=== PATIENT | female | born 1980 | race Caucasian/White ===

== ENCOUNTER 2017-11-04 04:34 | Emergency (ER) | payer BC, OTHER ==
[2017-11-04] MEDS ORDERED: Lidocaine 1% 50 ML MDV INJECT STA (04:48)
--- NOTE | 2017-11-04 05:32 | EDM.PDOC ---
ED HPI GENERAL MEDICAL PROBLEM - General Chief Complaint: Laceration Stated Complaint: laceration to face Time Seen by Provider: 11/04/17 04:45 Source of Information: Reports: Patient, Family History Limitations: Reports: No Limitations - History of Present Illness INITIAL COMMENTS - FREE TEXT/NARRATIVE: This is a 37-year-old female. She comes to the ER with a large laceration following her left eyebrow and is 5 cm in length. The laceration goes down to the bone and is gapping. The patient states she is not certain what happened but she has been drinking alcohol this evening. One of her friends states that she fell down some steps but there was no loss of consciousness. She complains of soreness in her hands but denies any other injuries. She denies any neck pain back pain chest pain abdominal pain or lower extremity pain. She states she is up-to-date with her tetanus. Left Eye Pain Score (Numeric/FACES): 4 - Related Data Allergies Allergy/AdvReac Type Severity Reaction Status Date / Time No Known Allergies Allergy Verified 11/04/17 04:44 Home Meds: Home Meds . 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 SPECIALIST History: Reports: None Musculoskeletal History: Reports: None Psychiatric History: Reports: None Endocrine/Metabolic History: Reports: None Dermatologic History: Reports: None - Past Surgical History Female Surgical History: Reports: None Musculoskeletal Surgical History: Reports: None Social & Family History - Family History Family Medical History: Noncontributory - Tobacco Use Smoking Status *Q: Unknown Ever Smoked Second Hand Smoke Exposure: No - Alcohol Use Days Per Week of Alcohol Use: 0 - Recreational Drug Use Recreational Drug Use: No ED ROS GENERAL - Review of Systems Review Of Systems: See Below Constitutional: Denies: Fever, Chills HEENT: Reports: Other (As per history of present illness) Respiratory: Reports: No Symptoms Cardiovascular: Reports: No Symptoms Endocrine: Reports: No Symptoms GI/Abdominal: Reports: No Symptoms : Reports: No Symptoms Musculoskeletal: Reports: Other (As per history of present illness) Skin: Reports: Other (As per history of present illness) Neurological: Reports: No Symptoms, Other Psychiatric: Reports: No Symptoms Hematologic/Lymphatic: Reports: No Symptoms ED EXAM, SKIN/RASH Exam: See Below Exam Limited By: No Limitations General Appearance: Alert, WD/WN, Mild Distress Eye Exam: Bilateral Eye: EOMI, Normal Inspection Ears: Normal External Exam Nose: Normal Inspection Throat/Mouth: Normal Inspection, Normal Lips, Normal Voice Head: Other (She is noted to have a 5 cm laceration following the left eyebrow down to the skull but not through the galea it is gapping open) Neck: Supple, Other (She denies any neck tenderness) Respiratory/Chest: No Respiratory Distress, Chest Non-Tender Back Exam: Full Range of Motion, Other (She denies any thoracic or lumbar tenderness) Extremities: Normal Inspection, Normal Range of Motion, Other (Examination of both her wrist and her hands do not reveal any bruising or swelling she has full range of motion of her wrist so they're sore for range of motion of her hands and she is able to make a fist and extend completely and sore but not painful, there is no bone tenderness on palpation of her wrist or her hands) Neurological: Alert, Oriented, No Motor/Sensory Deficits Psychiatric: Anxious, Tearful Skin: Warm, Dry ED SKIN PROCEDURES - Laceration/Wound Repair Left Forehead Lac/Wound length In cm: 5 Appearance: Subcutaneous, Linear, Clean Distal NVT: Neuro & Vascular Intact Anesthetic Type: Local Local Anesthesia - Lidocaine (Xylocaine): 1% Plain Local Anesthetic Volume: Other (8 cc) Skin Prep: Providone-Iodine (Betadine), Saline, Sterile Drape Exploration/Debridement/Repair: Wound Explored Closed with: Sutures Suture Size: other (6-0) # of Sutures: 10 Suture Type: Nylon, Running Suture Size: other (5-0) # of Sutures: 6 Repaired with: Vicryl Drain Placement: No Sterile Dressing Applied: Nurse Tetanus Status Addressed: Yes Complications: No Progress/Comments: Once the subcutaneous sutures were in it pulled the wound together very nicely and brought the forehead tissue down against the skull or galea so there was no gapping space and then the skin sutures were placed. The patient tolerated the procedure well Course - Vital Signs Last Recorded V/S: Last Vital Signs Temp 98.5 F 11/04/17 04:42 Pulse 88 11/04/17 04:42 Resp 18 11/04/17 04:42 BP 135/88 11/04/17 04:42 Pulse Ox 100 11/04/17 04:42 - Orders/Labs/Meds Meds: Medications Discontinued Medications Generic Name Dose Route Start Last Admin Trade Name Clau PRN Reason Stop Dose Admin Lidocaine HCl 50 ml 11/04/17 04:48 11/04/17 04:51 Xylocaine 1% INJECT 11/04/17 04:49 50 ml NOW STA Administration Departure - Departure Time of Disposition: 05:33 Disposition: Home, Self-Care 01 Condition: Good Clinical Impression: Laceration of left eyebrow without complication Qualifiers: Encounter type: initial encounter Qualified Code(s): S01.112A - Laceration without foreign body of left eyelid and periocular area, initial encounter - Discharge Information Instructions: Laceration Care, Adult, [id number] Referrals: PCP,None [Primary Care Provider] - Additional Instructions: Keep your wound clean and dry and covered for at least 3 days, when you change the dressing use water to cleanse the wound carefully, take Tylenol or ibuprofen or Aleve as needed for the soreness or if you have a headache, you need to follow up with the ER, your family physician, or the walk-in clinic in 5 -7 days for suture removal, watch for signs of infection such as increased redness increased swelling or yellow purulent drainage and then follow-up the ER immediately if this occurs, otherwise follow-up the ER as needed
== END 2017-11-04 05:58 | disposition home or self-care (01) ==
LOC: JD.ED 04:34
DX: S01.112A Laceration without foreign body of left eyelid and periocular area, initial encounter (principal); W10.9XXA Fall (on) (from) unspecified stairs and steps, initial encounter
CPT/HCPCS: 12052; 13132; 99282-25; 99283-25

== ENCOUNTER 2018-01-07 11:59 | Emergency (ER) | payer BC ==
--- NOTE | 2018-01-07 12:43 | EDM.PDOC ---
ED HPI GENERAL MEDICAL PROBLEM - General Chief Complaint: Lower Extremity Injury/Pain Stated Complaint: RT ANKLE INJURY Time Seen by Provider: 01/07/18 12:17 Source of Information: Reports: Patient History Limitations: Reports: No Limitations - History of Present Illness INITIAL COMMENTS - FREE TEXT/NARRATIVE: The patient presents with right ankle pain. She took her dog out last night and she may have stepped wrong or something and she inverted her ankle and fell. She did not hit her head or hurt her neck. She has no other complaints. She has right ankle pain with edema and ecchymosis. Onset: Sudden Duration: Day(s): (Last night) Location: Reports: Lower Extremity, Right (ankle) Quality: Reports: Sharp Severity: Moderate Improves with: Reports: Immobilization Worsens with: Reports: Movement Context: Reports: Trauma (She inverted her ankle and fell last night) Associated Symptoms: Reports: No Other Symptoms Right Ankle Pain Score (Numeric/FACES): 10 - Related Data Allergies Allergy/AdvReac Type Severity Reaction Status Date / Time No Known Allergies Allergy Verified 11/04/17 04:44 Home Meds: Home Meds . 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 Musculoskeletal History: Reports: None Psychiatric History: Reports: None Endocrine/Metabolic History: Reports: None Dermatologic History: Reports: None - Past Surgical History Female Surgical History: Reports: None Musculoskeletal Surgical History: Reports: None Social & Family History - Family History Family Medical History: Noncontributory - Tobacco Use Smoking Status *Q: Current Every Day Smoker Years of Tobacco use: 14 Packs/Tins Daily: 0.5 Second Hand Smoke Exposure: No - Caffeine Use Caffeine Use: Reports: Coffee, Tea - Alcohol Use Days Per Week of Alcohol Use: 0 - Recreational Drug Use Recreational Drug Use: No Review of Systems - Review of Systems Review Of Systems: See Below Constitutional: Reports: No Symptoms Eyes: Reports: No Symptoms Ears: Reports: No Symptoms Nose: Reports: No Symptoms Mouth/Throat: Reports: No Symptoms Respiratory: Reports: No Symptoms Cardiovascular: Reports: No Symptoms GI/Abdominal: Reports: No Symptoms Genitourinary: Reports: No Symptoms Musculoskeletal: Reports: Other (Right ankle pain, edema and ecchymosis) ED EXAM, GENERAL - Physical Exam Exam: See Below Exam Limited By: No Limitations General Appearance: Alert, No Apparent Distress Ears: Normal External Exam Nose: Normal Inspection Head: Atraumatic, Normocephalic Neck: Normal Inspection Respiratory/Chest: No Respiratory Distress Extremities: Other (Edema, ecchymosis and pain upon palpation to the lateral malleolus. Good sensation and pulses distally. Pain upon palpation to the fibular head.) Course - Orders/Labs/Meds Orders: Active Orders 24 hr Category Date Time Status Ankle Min 3V Rt [CR] Stat Exams 01/07/18 12:35 Taken Tibia Fibula Rt [CR] Stat Exams 01/07/18 12:35 Taken - Re-Assessments/Exams Free Text/Narrative Re-Assessment/Exam: 01/07/18 12:43 I have ordered an x-ray of her ankle and tib fib. 01/07/18 13:28 The patient has a distal fibular fracture. I will get her in a walking boot and crutches and have her follow up with Dr Fitzgerald. Departure - Departure Time of Disposition: 13:35 Disposition: Home, Self-Care 01 Condition: Good Clinical Impression: Fracture of distal fibula Qualifiers: Encounter type: initial encounter Fracture type: closed Fracture morphology: unspecified fracture morphology Laterality: right Qualified Code(s): S82.831A - Other fracture of upper and lower end of right fibula, initial encounter for closed fracture - Discharge Information Referrals: PCP,None [Primary Care Provider] - Anthony Fitzgerald DO [Physician] - 1 Week Forms: ED Department Discharge Additional Instructions: Ice your ankle for 15 minutes every other hour while awake for 2 days. Elevate your ankle as much as you can for 2 days. Take tylenol or motrin for pain. Wear the walking boot for support and do not put any weight on your leg for now. Follow up with Dr Fitzgerald within 1 week. Please return if you are worse. - My Orders Last 24 Hours: My Active Orders 01/07/18 12:35 Ankle Min 3V Rt [CR] Stat Tibia Fibula Rt [CR] Stat - Assessment/Plan Last 24 Hours: My Active Orders 01/07/18 12:35 Ankle Min 3V Rt [CR] Stat Tibia Fibula Rt [CR] Stat
--- NOTE | 2018-01-08 07:05 | CR ---
Right tibia and fibula: Two views of the right tibia and fibula were obtained. Distal fibular fracture is again seen with soft tissue swelling at the ankle. No proximal abnormality is seen. Impression: 1. Distal fibular fracture with soft tissue swelling. 2. Right tibia and fibula study are otherwise unremarkable. Diagnostic code #3
--- NOTE | 2018-01-08 07:05 | CR ---
Right ankle: Four views of the right ankle were obtained. Minimally comminuted distal fibular fracture is seen through the lateral malleolus. Minimal displacement is seen up to 1.5 mm. No additional fracture is seen. Soft tissue swelling is identified. Impression: 1. Minimally displaced lateral malleolar fracture with soft tissue swelling. Diagnostic code #3
== END 2018-01-07 13:50 | disposition home or self-care (01) ==
LOC: JD.ED 11:59
DX: S82.831A Other fracture of upper and lower end of right fibula, initial encounter for closed fracture (principal); F17.210 Nicotine dependence, cigarettes, uncomplicated; X50.1XXA Overexertion from prolonged static or awkward postures, initial encounter
CPT/HCPCS: 73590-26-RT; 73590-RT; 73610-26-RT; 73610-RT; 99283; 99284

== ENCOUNTER 2018-03-15 07:01 | Emergency (ER) | payer BC ==
--- NOTE | 2018-03-15 07:13 | EDM.PDOC ---
ED HPI GENERAL MEDICAL PROBLEM - General Chief Complaint: Upper Extremity Injury/Pain Stated Complaint: LT SHOULDER PAIN Time Seen by Provider: 03/15/18 07:12 Source of Information: Reports: Patient History Limitations: Reports: No Limitations - History of Present Illness INITIAL COMMENTS - FREE TEXT/NARRATIVE: 37-year-old female presents to the ED with diffuse cervical neck pain radiating into across her left posterior superior shoulder and into her upper arm. She relates the pain is gradually become more intense and constant over the last 10- 12 days. She recognizes no acute injuries to her neck. But she relates that she did fall face first with resultant laceration above her left eyebrow requiring suture repair about 3 months ago. Apparently she did not have any cervical pain at that time. She's been to the chiropractor massage therapist with minimal improvement. She's been taking Aleve primarily for pain relief into high-dose like 4 to time. No similar previous prongs. No known injuries to her shoulder. Pain is constant. She cannot lie on that side to sleep. She feels better if she puts her chin on her chest it relieves the pain. Pain is worsened by hyperextending her cervical spine. Onset: Gradual Onset Date: 03/02/18 Duration: Day(s): (On or about that date.) Location: Reports: Neck (Radiating to her left upper extremity.), Radiates to ( Left upper extremity primarily the shoulder and arm.) Quality: Reports: Ache, Throbbing, Other Severity: Severe (Burning lancinating pain with certain movements.) Improves with: Reports: Other (She's better for has less pain and she has chin on chest position.) Worsens with: Reports: Movement (Particularily hyper extension of the neck.) Context: Denies: Activity, Exercise, Lifting, Sick Contact, Trauma, Other Associated Symptoms: Reports: No Other Symptoms, Other (Markedly disrupted sleep due to pain.). 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 Left Shoulder Pain Score (Numeric/FACES): 8 - Related Data Allergies Allergy/AdvReac Type Severity Reaction Status Date / Time No Known Allergies Allergy Verified 03/15/18 07:10 Home Meds: Home Meds Diclofenac Sodium [Voltaren] 50 mg PO TID #36 tab.ec 03/15/18 [Rx] oxyCODONE HCl/Acetaminophen [Percocet 5-325 mg Tablet] 1 - 2 each PO Q4H PRN # 30 tablet 03/15/18 [Rx] predniSONE [Deltasone] 20 mg PO ASDIRECTED #18 tablet 03/15/18 [Rx] Past Medical History - Past Health History Medical/Surgical History: Denies Medical/Surgical History Respiratory History: Reports: None Gastrointestinal History: Reports: None Genitourinary History: Reports: None 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 Musculoskeletal History: Reports: None Psychiatric History: Reports: None Endocrine/Metabolic History: Reports: None Dermatologic History: Reports: None - Past Surgical History Female Surgical History: Reports: None Musculoskeletal Surgical History: Reports: None Social & Family History - Family History Family Medical History: Noncontributory - Tobacco Use Smoking Status *Q: Current Every Day Smoker Years of Tobacco use: 19 Packs/Tins Daily: 0.5 Used Tobacco, but Quit: No Second Hand Smoke Exposure: No - Caffeine Use Caffeine Use: Reports: Coffee - Alcohol Use Days Per Week of Alcohol Use: 0 - Recreational Drug Use Recreational Drug Use: No - Living Situation & Occupation Living situation: Reports: Single Occupation: Employed Review of Systems - Review of Systems Review Of Systems: See Below Constitutional: Reports: No Symptoms Eyes: Reports: No Symptoms Ears: Reports: No Symptoms Nose: Reports: No Symptoms Mouth/Throat: Reports: No Symptoms Respiratory: Reports: No Symptoms Cardiovascular: Reports: No Symptoms GI/Abdominal: Reports: No Symptoms Genitourinary: Reports: No Symptoms Musculoskeletal: Reports: Neck Pain, Shoulder Pain Skin: Reports: No Symptoms (See history of present illness) Neurological: Reports: No Symptoms Psychiatric: Reports: No Symptoms ED EXAM, GENERAL - Physical Exam Exam: See Below Exam Limited By: No Limitations General Appearance: Alert, WD/WN, Moderate Distress Eye Exam: Bilateral Eye: Normal Inspection (Appears to be in genuine pain.) Head: Atraumatic, Normocephalic Neck: Normal Inspection, Tender Lateral (Left side particularly C5-C6 facet joint area.), Other (Axial traction to the neck increased radicular pain into the left upper extremity.). No: Lymphadenopathy (L), Lymphadenopathy (R) Respiratory/Chest: No Respiratory Distress, Lungs Clear, Normal Breath Sounds, No Accessory Muscle Use Cardiovascular: Normal Peripheral Pulses, Regular Rate, Rhythm, No Edema, No Gallop, No Murmur Extremities: Normal Inspection, Normal Range of Motion, Non-Tender, No Pedal Edema, Other (No evidence of rotator cuff injury no evidence of biceps tendinitis or deltoid tendinitis. There is pain across the superior aspect of the left shoulder in the distribution of the superior belly of the trapezius and levator scapula muscle distribution. There is spasm of this muscle.) Neurological: Alert, Oriented, CN II-XII Intact, Normal Cognition, Normal Gait, Normal Reflexes, No Motor/Sensory Deficits Psychiatric: Normal Affect, Normal Mood Skin Exam: Warm, Dry, Intact, Normal Color, No Rash Course - Vital Signs Last Recorded V/S: Last Vital Signs Temp 36.6 C 03/15/18 07:07 Pulse 69 03/15/18 07:07 Resp 18 03/15/18 07:07 BP 122/81 03/15/18 07:07 Pulse Ox 100 03/15/18 07:07 - Radiology Interpretation Free Text/Narrative:: 37-year-old female presents to the ED with gradually worsening cervical neck pain rating to the left upper shoulder and upper arm. She estimates it's been getting gradually worsening over a period of 10-14 days. [place] injury occurred. 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 Fall 3 months ago with a resultant laceration above her left eyebrow that required laceration repair. Therefore it suggest there probably was a hyper extension injury to her cervical spine at that time. However she didn't develop any symptoms until about 10-12 days ago. She's been to the chiropractor and massage therapist with limited improvement in the pain. Pain is constant and only flexing her chin on her chest gives her some relief of pain. Examination suggests that she has a cervical disc herniation likely at C5-6 C7. Plan will be to have arrange an MRI as an outpatient and have her follow-up in the clinic for physiotherapy arrangements and/or neurosurgical consultation. In the meantime I will place her on Voltaren 50 mg 3 times daily for the next 12 days. Prednisone 20 mg a.m. and p.m. for 6 days and then once in the morning only for another 6 days. Percocet tabs 03/22/25 one or 2 every 4-6 hours needed for pain relief primarily at bedtime so that she can sleep. 30 tablets were provided. Departure - Departure Time of Disposition: 07:25 Disposition: Home, Self-Care 01 Condition: Fair Clinical Impression: Cervical neck pain with evidence of disc disease - Discharge Information Prescriptions: Diclofenac Sodium [Voltaren] 50 mg PO TID #36 tab.ec oxyCODONE HCl/Acetaminophen [Percocet 5-325 mg Tablet] 1 - 2 each PO Q4H PRN # 30 tablet PRN Reason: pain relief. predniSONE [Deltasone] 20 mg PO ASDIRECTED #18 tablet Referrals: PCP,None [Primary Care Provider] - Forms: ED Department Discharge Additional Instructions: Evaluation in the emergency room today in regards to pain starting in her neck and radiating into the left shoulder and upper arm. This started over 10 days ago and is gradually worsening. Clinical examination suggests likely disc herniation or bulge at the C5-C6 level. Clinically there was no evidence of any rotator cuff tears within the shoulder itself. Suggest treatment to be anti- inflammatory Voltaren 50 mg 3 times daily for the next 12 days. Deltasone 20 mg with breakfast and supper for 6 days then 1 tab in the morning only for another 6 days to further reduce pain and inflammation from the nerve being compressed. Pain medication is Percocet 5/3/25 milligrams strength one or 2 every 4-6 hours as necessary for pain relief. MRI of her cervical spine needs to be done. I will have the x-ray department call you later this morning with an appointment time that is mutually agreeable to both of you. You will need follow-up with a local doctor to further facilitate either physiotherapy program or referral to neurosurgery. Suggest make an appointment to see Dr. Ibrahim on the other side of the Hospital second floor. Please call [phone] to arrange an appointment. Results of your MRI will be sent to her office. The results are usually available a day after your MRI is been completed.
== END 2018-03-15 07:50 | disposition home or self-care (01) ==
LOC: JD.ED 07:01
DX: M54.2 Cervicalgia (principal); F17.210 Nicotine dependence, cigarettes, uncomplicated
CPT/HCPCS: 99283

== ENCOUNTER 2019-02-26 02:29 | Inpatient (IN) | payer OTHER ==
[2019-02-26] MEDS ORDERED: Nalbuphine 20 MG/ML 1 ML Syringe IVPUSH PRN (13:39)
[2019-02-26] MEDS ORDERED: Sodium Chloride 0.9% 10 ML Syringe FLUSH PRN (13:39)
[2019-02-26] MEDS ORDERED: Ondansetron 4 MG/2 ML SDV IVPUSH PRN ×2 (13:39→20:52)
[2019-02-26] MEDS ORDERED: Oxytocin/Lactated Ringers 10 UNIT/1,000 ML BAG IV SCH ×2 (13:45)
[2019-02-26] MEDS ORDERED: Ampicillin 2 GM in Sodium Chloride 0.9% 100 ML IV ONE (14:00)
[2019-02-26] MEDS: Lactated Ringers 1,000 ML IV SCH ×3 (14:30→21:55)
[2019-02-26] MEDS: Ampicillin 1 GM in Sodium Chloride 0.9% 100 ML IV SCH ×2 (18:23→21:54)
[2019-02-26] MEDS ORDERED: fentaNYL/Bupivacaine-NS 2 MCG/ML-0.125%/PF 100 ML Bag EPIDUR ONE (20:52)
[2019-02-26] MEDS ORDERED: diphenhydrAMINE 50 MG/ML SDV IVPUSH PRN (20:52)
[2019-02-26] MEDS ORDERED: fentaNYL 100 MCG/2 ML SDV EPIDUR PRN (20:52)
[2019-02-26] MEDS ORDERED: ePHEDrine 50 MG/ML SDV IVPUSH PRN (20:52)
--- NOTE | 2019-02-26 21:36 | PCM.PREANE ---
Preanesthetic Assessment - Anesthesia/Transfusion/Family Hx Anesthesia History: Prior Anesthesia Without Reaction Family History of Anesthesia Reaction: No Transfusion History: No Prior Transfusion(s) - Review of Systems General: No Symptoms Pulmonary: No Symptoms Cardiovascular: No Symptoms Gastrointestinal: Other (Heart Burn ) Neurological: No Symptoms Other: Reports: None - Physical Assessment O2 Sat by Pulse Oximetry: 98 Respiratory Rate: 18 Vital Signs: Last Vital Signs Temp 36.4 C 02/26/19 13:39 Pulse 101 H 02/26/19 13:39 Resp 18 02/26/19 13:39 BP 127/94 H 02/26/19 13:39 Pulse Ox Height: 1.68 m Weight: 94.347 kg ASA Class: 2 Mental Status: Alert & Oriented x3 Airway Class: Mallampati = 1 Dentition: Reports: Normal Dentition Thyro-Mental Finger Breadths: 3 Mouth Opening Finger Breadths: 3 ROM/Head Extension: Full Lungs: Clear to Auscultation, Normal Respiratory Effort Cardiovascular: Regular Rate, Regular Rhythm - Lab Values: Laboratory Last Values WBC 13.50 K/mm3 (3.98-10.04) H 02/26/19 14:25 RBC 4.22 M/mm3 (3.98-5.22) 02/26/19 14:25 Hgb 13.7 gm/L (11.2-15.7) 02/26/19 14:25 Hct 39.7 % (34.1-44.9) 02/26/19 14:25 MCV 94.1 fl (79.4-94.8) 02/26/19 14:25 MCH 32.5 pg (25.6-32.2) H 02/26/19 14:25 MCHC 34.5 g/dl (32.2-35.5) 02/26/19 14:25 RDW Std Deviation 45.4 fL (36.4-46.3) 02/26/19 14:25 Plt Count 167 K/mm3 (182-369) L 02/26/19 14:25 MPV 11.3 fl (9.4-12.3) 02/26/19 14:25 Neut % (Auto) 67.4 % (34.0-71.1) 02/26/19 14:25 Lymph % (Auto) 24.4 % (19.3-51.7) 02/26/19 14:25 Bartholomew % (Auto) 7.1 % (4.7-12.5) 02/26/19 14:25 Eos % (Auto) 0.4 (0.7-5.8) L 02/26/19 14:25 Baso % (Auto) 0.1 % (0.1-1.2) 02/26/19 14:25 Neut # (Auto) 9.09 K/mm3 (1.56-6.13) H 02/26/19 14:25 Lymph # (Auto) 3.29 K/mm3 (1.18-3.74) 02/26/19 14:25 Bartholomew # (Auto) 0.96 K/mm3 (0.24-0.36) H 02/26/19 14:25 Eos # (Auto) 0.06 K/mm3 (0.04-0.36) 02/26/19 14:25 Baso # (Auto) 0.02 K/mm3 (0.01-0.08) 02/26/19 14:25 RPR Non-reactive (NONREACTIVE) 02/26/19 14:25 - Allergies Allergies/Adverse Reactions: Allergies Allergy/AdvReac Type Severity Reaction Status Date / Time No Known Allergies Allergy Verified 03/15/18 07:10 - Acknowledgements Anesthesia Type Planned: Epidural Pt an Appropriate Candidate for the Planned Anesthesia: Yes Alternatives and Risks of Anesthesia Discussed w Pt/Guardian: Yes Pt/Guardian Understands and Agrees with Anesthesia Plan: Yes PreAnesthesia Questionnaire - Past Health History Medical/Surgical History: Denies Medical/Surgical History HEENT History: Reports: Impaired Vision Other HEENT History: wears corrective lenses Respiratory History: Reports: None Gastrointestinal History: Reports: None Genitourinary History: Reports: None 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: Musculoskeletal History: Reports: None Other Musculoskeletal History: ankle and wrsit fractures Psychiatric History: Reports: None Endocrine/Metabolic History: Reports: None Dermatologic History: Reports: None - Past Surgical History Female Surgical History: Reports: None Musculoskeletal Surgical History: Reports: None - SUBSTANCE USE Smoking Status *Q: Current Some Day Smoker Tobacco Use Within Last Twelve Months: Cigarettes Recreational Drug Use History: No - HOME MEDS Home Medications: Home Meds PNV95/Ferrous Fumarate/FA [ Tablet] 1 tab PO DAILY 02/26/19 [History] - CURRENT (IN HOUSE) MEDS Current Meds: Current Medications Diphenhydramine HCl (Benadryl) 25 mg IVPUSH Q6H PRN PRN Reason: Pruritis Ephedrine Sulfate (Ephedrine Sulfate) 5 mg IVPUSH ASDIRECTED PRN PRN Reason: Hypotension Fentanyl (Sublimaze) 100 mcg EPIDUR ONETIME PRN PRN Reason: Pain Last Admin: 02/26/19 21:34 Dose: 100 mcg Ampicillin Sodium 1 gm/ Sodium (Chloride) 100 mls @ 200 mls/hr IV Q4H SHERI Last Admin: 02/26/19 18:23 Dose: 200 mls/hr Lactated Ringer's (Ringers, Lactated) 1,000 mls @ 100 mls/hr IV ASDIRECTED SHERI Last Admin: 02/26/19 19:57 Dose: 100 mls/hr Oxytocin/Lactated Ringer's (Pitocin In Lr 10 Units/1,000 Ml) 10 unit in 1,000 mls @ 12 mls/hr IV TITRATE SHERI; Protocol Last Titration: 02/26/19 19:54 Dose: 14 munits/min, 84 mls/hr Oxytocin/Lactated Ringer's (Pitocin In Lr 10 Units/1,000 Ml) 10 unit in 1,000 mls @ 500 mls/hr IV .CONTINUOUS SHERI Nalbuphine HCl (Nubain) 10 mg IVPUSH Q2H PRN PRN Reason: pain Ondansetron HCl (Zofran) 4 mg IVPUSH Q4H PRN PRN Reason: Nausea/Vomiting Ondansetron HCl (Zofran) 4 mg IVPUSH ONETIME PRN PRN Reason: Nausea/Vomiting Sodium Chloride (Saline Flush) 10 ml FLUSH ASDIRECTED PRN PRN Reason: Keep Vein Open Discontinued Medications Fentanyl/Bupivacaine HCl (Aaupswyk-Rozsg-Kn 2 Mcg/Ml-0.125%) 100 ml EPIDUR ONETIME ONE Stop: 02/26/19 20:53 Last Admin: 02/26/19 21:34 Dose: 100 ml Ampicillin Sodium 2 gm/ Sodium (Chloride) 100 mls @ 200 mls/hr IV ONETIME ONE Stop: 02/26/19 14:29 Last Admin: 02/26/19 14:35 Dose: 200 mls/hr
[2019-02-26] MEDS ORDERED: Bupivacaine 0.25% 10 ML SDV ONE (22:00)
--- NOTE | 2019-02-27 03:00 | PCM.LDHP ---
L&D History of Present Illness - General Date of Service: 02/27/19 Admit Problem/Dx: Patient Status Order with Admit Dx/Problem 02/26/19 13:39 Patient Status [ADT] Routine Admission Diagnosis/Problem Admission Diagnosis/Problem 02/27/19 19:39 Jonna is a 38-year-old 2 para 0010 white female was admitted for induction of labor for reported decreased movement at 39-6/7 weeks with an SALAS of 02/27/2019. Source of Information: Patient History Limitations: Reports: No Limitations - History of Present Illness Introduction:: Jonna is a 38-year-old 2 para 0010 white female at 39-6/7 weeks with an SALAS of 02/27/2019 is admitted at midday on 02/26/2019 for reported decreased activity. The patient had a reactive NST patient is not feeling the baby move adequately and decision was made to proceed with induction of labor for this reason. 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 [place] 2018 is based on early ultrasound done on 920 17-4/7 weeks gestational age. LMP was 05/23/2018. Patient had 2 other ultrasounds on 11/01/2018 and 08/16/2018 both supported and SALAS of 02/27/2019. course was relatively unremarkable. Her first visit occurred on 08/16/2018. She had been seen on a regular basis. She is a centering patient. Fundal height growth was appropriate area weight gain was from 178-207.6 pounds or approximately 29.6 pound weight gain. Previous obstetric history includes miscarriage at 12 weeks and 11/04/2008. Elizabeth testing was negative. Her [place] depression screening score was 5 on a scale of 30 on 10/04/2018. She plans to breast-feed. laboratory testing shows blood to be B+. Initial first labs show hemoglobin of 13. platelets 280,000. She is rubella immune. RPR is nonreactive. Urine culture was negative. [employer] B surface antigen and HIV assays were both negative. Chlamydia and gonorrhea assays were both negative. Second trimester laboratory testing showed a hemoglobin 11.9 g/dL. Her platelets are 270,000. One-hour GTT was normal at 115 mg/dL. Her group B strep screen was positive. Patient allergic to penicillin and therefore it is a candidate for penicillin prophylaxis for group B strep while in labor and delivery. Allergies: None Medications: 1. Ferrous sulfate 325 mg by mouth daily 2. vitamins daily 3. Cleocin T external solution 1%twice a day for acne Past medical history: 1. Miscarriage 1 Past surgical history: 1. 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 [place] teeth extraction. Family history mother is alive and well. Father is alive with hypertension. Maternal grandfather is deceasedcause unknown. Maternal grandmother deceasedcause unknown. General grandfather is deceasedunknown cause. Paternal grandmother is due to internal bleeding, possible cancer. No family history of cancer otherwise. No bleeding, blood clotting, anesthesia or -related problems noted with the exception of a cousin with cervical cancer. Social history. Patient's currently smokes 1/2-1/3 pack cigarettes per day. She does not use any significant loss of alcohol or drugs. She lives in [facility]. She is single. Her significant other is Jamison. Review of systems: In general patient has no complaints. Patient's symptoms. Baby has been active. Skin: Negative Lungs: No infectious symptoms or shortness of breath Cardiovascular: No chest pain or exercise intolerance Breasts: No lumps, changes in size, pain, dimpling, discharge or axillary or supraclavicular concerns. GI: Negative : Negative Musculoskeletal: Negative Neurological: Negative In general the patient is well-developed, well-nourished, pleasant female of stated age in no acute distress. Skin is warm dry without lesions. HEENT, neck and back within normal limits. Lungs are clear with good breath sounds in all lung cardenas. Breast exam deferred having been done at time of first visit and found to be normal. Patient plans to breast-feed. Cardiovascular exam shows regular and rhythm without murmurs. Abdomen is flat, soft, nontender without masses or organomegaly. Positive bowel sounds are noted. No inguinal lymphadenopathy or hernias are noted. Genital exam shows cervix to be 3 cm/90% effaced/anterior position/-1 station/ soft. Extremities and neurological exam are grossly within normal limits. 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: Reports: Musculoskeletal History: Reports: None Other Musculoskeletal History: ankle and wrsit fractures Psychiatric History: Reports: None Endocrine/Metabolic History: Reports: None Dermatologic History: Reports: None - Past Surgical History Female Surgical History: Reports: None Musculoskeletal Surgical History: Reports: None Social & Family History - Family History Family Medical History: Noncontributory - Tobacco Use Smoking Status *Q: Current Some Day Smoker Years of Tobacco use: 20 Packs/Tins Daily: 0.2 Used Tobacco, but Quit: Yes Month/Year Tobacco Last Used: february - Caffeine Use Caffeine Use: Reports: Coffee, Soda - Recreational Drug Use Recreational Drug Use: No - Living Situation & Occupation Living situation: Reports: Single Occupation: Employed H&P Review of Systems - Review of Systems: Review Of Systems: See Below L&D Exam - Exam Exam: See Below - Vital Signs Vital Signs: Last Vital Signs Temp 36.4 C 02/26/19 13:39 Pulse 101 H 02/26/19 13:39 Resp 18 02/26/19 21:36 BP 127/94 H 02/26/19 13:39 Pulse Ox 98 02/26/19 21:36 Weight: 94.347 kg - Patient Data Lab Results Last 24 hrs: Laboratory Results - last 24 hr 02/26/19 02/26/19 Range/Units 14:25 14:25 WBC 13.50 H (3.98-10.04) K/mm3 RBC 4.22 (3.98-5.22) M/mm3 Hgb 13.7 (11.2-15.7) gm/L Hct 39.7 (34.1-44.9) % MCV 94.1 (79.4-94.8) fl MCH 32.5 H (25.6-32.2) pg MCHC 34.5 (32.2-35.5) g/dl RDW Std Deviation 45.4 (36.4-46.3) fL Plt Count 167 L (182-369) K/mm3 MPV 11.3 (9.4-12.3) fl Neut % (Auto) 67.4 (34.0-71.1) % Lymph % (Auto) 24.4 (19.3-51.7) % Mccormick % (Auto) 7.1 (4.7-12.5) % Eos % (Auto) 0.4 L (0.7-5.8) Baso % (Auto) 0.1 (0.1-1.2) % Neut # (Auto) 9.09 H (1.56-6.13) K/mm3 Lymph # (Auto) 3.29 (1.18-3.74) K/mm3 Mccormick # (Auto) 0.96 H (0.24-0.36) K/mm3 Eos # (Auto) 0.06 (0.04-0.36) K/mm3 Baso # (Auto) 0.02 (0.01-0.08) K/mm3 RPR Non-reactive (NONREACTIVE) Result Diagrams: 02/26/19 14:25 Problem List Initiated/Reviewed/Updated: Yes Orders Last 24hrs: Active Orders 24 hr Category Date Time Status Patient Status Manage Transfer [TRANSFER] Routine ADT 02/27/19 02:57 Ordered Patient Status [ADT] Routine ADT 02/26/19 13:39 Active Activity as Tolerated [RC] PFP Care 02/26/19 13:39 Active Communication Order [RC] ASDIRECTED Care 02/26/19 13:39 Active Heart Tones [RC] ASDIRECTED Care 02/26/19 13:40 Active Non Stress Test [RC] PER UNIT ROUTINE Care 02/26/19 13:39 Active Notify Provider [RC] ASDIRECTED Care 02/26/19 20:52 Active Notify Provider [RC] PFP Care 02/26/19 13:39 Active Notify Provider [RC] PRN Care 02/26/19 13:39 Active Peripheral IV Care [RC] . DIRECTED Care 02/26/19 13:40 Active Vital Signs [RC] PER UNIT ROUTINE Care 02/26/19 13:39 Active Regular Diet [DIET] Diet 02/26/19 Lunch Active Ampicillin 1 gm Med 02/26/19 18:00 Active Sodium Chloride 0.9% [Normal Saline] 100 ml IV Q4H Lactated Ringers [Ringers, Lactated] 1,000 ml Med 02/26/19 13:45 Active IV ASDIRECTED Nalbuphine [Nubain] Med 02/26/19 13:39 Active 10 mg IVPUSH Q2H PRN Ondansetron [Zofran] Med 02/26/19 20:52 Active 4 mg IVPUSH ONETIME PRN Ondansetron [Zofran] Med 02/26/19 13:39 Active 4 mg IVPUSH Q4H PRN Oxytocin/Lactated Ringers [Pitocin in LR 10 Units/1,000 Med 02/26/19 13:45 Active ML] 10 unit in 1,000 ml IV .CONTINUOUS Oxytocin/Lactated Ringers [Pitocin in LR 10 Units/1,000 Med 02/26/19 13:45 Active ML] 10 unit in 1,000 ml IV TITRATE Sodium Chloride 0.9% [Saline Flush] Med 02/26/19 13:39 Active 10 ml FLUSH ASDIRECTED PRN diphenhydrAMINE [Benadryl] Med 02/26/19 20:52 Active 25 mg IVPUSH Q6H PRN ePHEDrine [ePHEDrine sulfate] Med 02/26/19 20:52 Active 5 mg IVPUSH ASDIRECTED PRN fentaNYL [Sublimaze] Med 02/26/19 20:52 Active 100 mcg EPIDUR ONETIME PRN Electronic Heart Tones Ext w TOCO [WOMSER] Oth 02/26/19 13:39 Ordered Routine Electronic Heart Tones Internal [WOMSER] Per Unit Oth 02/26/19 13:39 Ordered Routine Peripheral IV Insertion Adult [OM.PC] Routine Oth 02/26/19 13:39 Ordered Resuscitation Status Routine Resus Stat 02/26/19 13:39 Ordered Medication Orders Diphenhydramine HCl (Benadryl) 25 mg IVPUSH Q6H PRN PRN Reason: Pruritis Ephedrine Sulfate (Ephedrine Sulfate) 5 mg IVPUSH ASDIRECTED PRN PRN Reason: Hypotension Fentanyl (Sublimaze) 100 mcg EPIDUR ONETIME PRN PRN Reason: Pain Last Admin: 02/26/19 21:34 Dose: 100 mcg Ampicillin Sodium 1 gm/ Sodium (Chloride) 100 mls @ 200 mls/hr IV Q4H SHERI Last Admin: 02/26/19 21:54 Dose: 200 mls/hr Infusion: 02/26/19 18:53 Dose: 200 mls/hr Admin: 02/26/19 18:23 Dose: 200 mls/hr Lactated Ringer's (Ringers, Lactated) 1,000 mls @ 100 mls/hr IV ASDIRECTED SHERI Last Admin: 02/26/19 21:55 Dose: 100 mls/hr Infusion: 02/26/19 21:55 Dose: 100 mls/hr Admin: 02/26/19 19:57 Dose: 100 mls/hr Infusion: 02/26/19 19:57 Dose: 100 mls/hr Admin: 02/26/19 14:30 Dose: 100 mls/hr Oxytocin/Lactated Ringer's (Pitocin In Lr 10 Units/1,000 Ml) 10 unit in 1,000 mls @ 12 mls/hr IV TITRATE SHERI; Protocol Last Titration: 02/26/19 19:54 Dose: 14 munits/min, 84 mls/hr Titration: 02/26/19 18:34 Dose: 12 munits/min, 72 mls/hr Titration: 02/26/19 17:00 Dose: 10 munits/min, 60 mls/hr Titration: 02/26/19 16:35 Dose: 8 munits/min, 48 mls/hr Titration: 02/26/19 16:00 Dose: 6 munits/min, 36 mls/hr Titration: 02/26/19 15:25 Dose: 4 munits/min, 24 mls/hr Admin: 02/26/19 14:35 Dose: 2 munits/min, 12 mls/hr Oxytocin/Lactated Ringer's (Pitocin In Lr 10 Units/1,000 Ml) 10 unit in 1,000 mls @ 500 mls/hr IV .CONTINUOUS SHERI Nalbuphine HCl (Nubain) 10 mg IVPUSH Q2H PRN PRN Reason: pain Ondansetron HCl (Zofran) 4 mg IVPUSH Q4H PRN PRN Reason: Nausea/Vomiting Ondansetron HCl (Zofran) 4 mg IVPUSH ONETIME PRN PRN Reason: Nausea/Vomiting Sodium Chloride (Saline Flush) 10 ml FLUSH ASDIRECTED PRN PRN Reason: Keep Vein Open Assessment/Plan Comment:: 1. 39-6/7 week intrauterine admitted for elective induction of labor due to perceived decreased movement. Patient presently not feeling any activity despite a reactive NST. 2. Group B strep screen positivepatient is candidate for ampicillin reflexes per protocol in labor and delivery 3. Patient plans to breast-feed. 4. Rubella titer shows immunity 5. Generally healthy female with 1 previous miscarriage 6. Patient is up-to-date regarding her T Dap done on 12/05/2018 and her flu shot on 09/05/2018. She is rubella immune. 7. Epidural for labor analgesia Plan: 1. Pitocin induction with artificial rupture membranes follow-up. Routine monitoring and activity/diet in labor. 2. Group B strep prophylaxis ampicillin per protocol 3. Support breast-feeding decision. 4. Anticipate .
--- NOTE | 2019-02-27 03:04 | PCM.SN ---
- Free Text/Narrative Note: Jonna is a 38-year-old 1 now para 1001 white female was admitted at midday on 02/26/2019 for decreased movement. He is admitted for induction of labor. Pitocin was started initially and patient eventually had spontaneous rupture membranes. She progressed well through labor. She had epidural for labor and analgesia. She began pushing at approximately there 0015 hours on 02/27/2019. She delivered a viable, hardy, male with Apgars of 8 and 8, a weight of 3340 g (7 pounds 5.6 ounces), a length of 22.0 inches in an occiput anterior position. She delivered at 0229 hours on 02/27/2019. He was placed on mom's abdomen, nose and mouth were bulb suctioned. Pitocin was increased to 500 mL/h after delivery the baby to facilitate increase uterine tone and decrease likelihood of bleeding. Cord was obtained. Umbilical cord had 3 vessels present within it. The patient is noted to have a small vaginal laceration which was repaired with 3-0 Monocryl. This is done in a running fashion per routine. The epidural was used for anesthesia. Patient tolerated this well. Placenta delivered in a [place] fashion, appeared intact and complete and was discarded per patient desire. The patient plans to breast-feed. Assessment boluses 100 mL. Condition: Good.
[2019-02-27] MEDS ORDERED: Docusate Sodium 100 MG Cap PO PRN (03:19)
[2019-02-27] MEDS ORDERED: Ibuprofen 600 MG Tab PO PRN (03:19)
[2019-02-27] MEDS ORDERED: Lanolin 100% Cream 7 GM Tube TOP PRN (03:19)
[2019-02-27] MEDS ORDERED: Acetaminophen 325 MG Tab PO PRN (03:19)
[2019-02-27] MEDS ORDERED: Witch Hazel Medicated Pads 40/Jar TOP PRN (03:19)
[2019-02-27] MEDS ORDERED: Benzocaine/Menthol 20%-0.5% Spray 56 GM Canister TOP PRN (03:19)
--- NOTE | 2019-02-28 05:49 | PCM.DCSUM1 ---
Discharge Summary - Hospital Course Free Text/Narrative:: Jonna is a 38-year-old 1 now para 1001 white female was admitted at midday on 02/26/2019 for decreased movement. He is admitted for induction of labor. Pitocin was started initially and patient eventually had spontaneous rupture membranes. She progressed well through labor. She had epidural for labor and analgesia. She began pushing at approximately there 0015 hours on 02/27. She delivered a viable, hardy, male infant with Apgars of 8 and 8, a weight of 3340 g (7 pounds 5.6 ounces), a length of 22.0 inches in an occiput anterior position. She delivered at 0229 hours on 02/27/2019. He was placed on mom's abdomen, nose and mouth were bulb suctioned. Pitocin was increased to 500 mL/h after delivery the baby to facilitate increase uterine tone and decrease likelihood of bleeding. Cord was obtained. Umbilical cord had 3 vessels present within it. The patient is noted to have a small vaginal laceration which was repaired with 3-0 Monocryl. This is done in a running fashion per routine. The epidural was used for anesthesia. Patient tolerated this well. Placenta delivered in a [place] fashion, appeared intact and complete and was discarded per patient desire. The patient plans to breast-feed. patient has done well. She had some borderline blood pressure evaluations with these results patient is doing well this point. She is nursing without problems, ambulating well and has minimal lochia. She is desiring discharge and baby has been released. - Discharge Data Discharge Date: 02/28/19 Discharge Disposition: Home, Self-Care 01 Condition: Good - Patient Instructions Diet: Regular Diet as Tolerated (Nursing diet with increased calories and calcium is recommended) Activity: As Tolerated (No intercourse or tampons until bleeding resolves) Driving: May Drive Today Showering/Bathing: May Shower Notify Provider of: Fever, Increased Pain, Swelling and Redness, Nausea and/or Vomiting - Discharge Plan Home Medications: Home Meds PNV95/Ferrous Fumarate/FA [ Tablet] 1 tab PO DAILY 02/26/19 [History] Acetaminophen [Tylenol] 650 mg PO Q4H PRN tablet 02/28/19 [Rx] Ibuprofen [Motrin] 600 mg PO Q4H PRN tablet 02/28/19 [Rx] Referrals: Moy Stephenson MD [Primary Care Provider] - (Return to clinicDr. Stephenson2 weeks) - Discharge Summary/Plan Comment DC Time >30 min.: No Discharge Summary/Plan Comment: Discharge instructions: 1. Discharge home 2. Diet, activity and follow-up discussed with patient. Recommend nursing diet with increased calories and calcium. 3. Precautions given concern increased pain, bleeding, temperature, signs/ symptoms of DVT/PE. 4. Medications per home medication was printed, discussed with and given to the patient. 5. Return to clinic-Dr. Stephenson[facility] in 2 weeks. Diagnosis: Term -delivered Condition: Good - Patient Data Vitals - Most Recent: Last Vital Signs Temp 36.9 C 02/28/19 03:51 Pulse 56 L 02/28/19 03:51 Resp 14 02/28/19 03:51 BP 114/70 02/28/19 03:51 Pulse Ox 100 02/28/19 03:51 Weight - Most Recent: 94.347 kg I&O - Last 24 hours: Intake & Output 02/27/19 02/27/19 02/28/19 14:59 22:59 06:59 Intake Total 0 Balance 0 Med Orders - Current: Current Medications Acetaminophen (Tylenol) 650 mg PO Q4H PRN PRN Reason: mild pain or fever Benzocaine/Menthol (Dermoplast Pain Relief [place]) 0 gm TOP ASDIRECTED PRN PRN Reason: Perineal Comfort Measure Docusate Sodium (Colace) 100 mg PO BID PRN PRN Reason: Constipation Emollient Ointment (Lansinoh Hpa) 0 gm TOP ASDIRECTED PRN PRN Reason: Sore Nipples Ibuprofen (Motrin) 600 mg PO Q4H PRN PRN Reason: Mild pain or fever Last Admin: 02/27/19 20:06 Dose: 600 mg [place] (Tucks) 1 pad TOP ASDIRECTED PRN PRN Reason: Pain Discontinued Medications Diphenhydramine HCl (Benadryl) 25 mg IVPUSH Q6H PRN PRN Reason: Pruritis Ephedrine Sulfate (Ephedrine Sulfate) 5 mg IVPUSH ASDIRECTED PRN PRN Reason: Hypotension Fentanyl (Sublimaze) 100 mcg EPIDUR ONETIME PRN PRN Reason: Pain Last Admin: 02/26/19 21:34 Dose: 100 mcg Fentanyl/Bupivacaine HCl (Vlgugpsr-Qljap-Ym 2 Mcg/Ml-0.125%) 100 ml EPIDUR ONETIME ONE Stop: 02/26/19 20:53 Last Admin: 02/26/19 21:34 Dose: 100 ml Ampicillin Sodium 2 gm/ Sodium (Chloride) 100 mls @ 200 mls/hr IV ONETIME ONE Stop: 02/26/19 14:29 Last Admin: 02/26/19 14:35 Dose: 200 mls/hr Ampicillin Sodium 1 gm/ Sodium (Chloride) 100 mls @ 200 mls/hr IV Q4H SHERI Last Admin: 02/26/19 21:54 Dose: 200 mls/hr Lactated Ringer's (Ringers, Lactated) 1,000 mls @ 100 mls/hr IV ASDIRECTED SHERI Last Admin: 02/26/19 21:55 Dose: 100 mls/hr Oxytocin/Lactated Ringer's (Pitocin In Lr 10 Units/1,000 Ml) 10 unit in 1,000 mls @ 12 mls/hr IV TITRATE SHERI; Protocol Last Titration: 02/26/19 19:54 Dose: 14 munits/min, 84 mls/hr Oxytocin/Lactated Ringer's (Pitocin In Lr 10 Units/1,000 Ml) 10 unit in 1,000 mls @ 500 mls/hr IV .CONTINUOUS SHERI Nalbuphine HCl (Nubain) 10 mg IVPUSH Q2H PRN PRN Reason: pain Ondansetron HCl (Zofran) 4 mg IVPUSH Q4H PRN PRN Reason: Nausea/Vomiting Ondansetron HCl (Zofran) 4 mg IVPUSH ONETIME PRN PRN Reason: Nausea/Vomiting Sodium Chloride (Saline Flush) 10 ml FLUSH ASDIRECTED PRN PRN Reason: Keep Vein Open
== END 2019-02-28 11:16 | disposition home or self-care (01) | DRG 807 ==
LOC: JD.OB 02:29 → OBSVTOIN 02-27 02:29 → JD.OB 02-27 02:30
PROVIDERS: ADMIT Obstetrics & Gynecology; ATTEND Obstetrics & Gynecology
PROC: 10E0XZZ Delivery of Products of Conception, External Approach (ICD-10-PCS; principal; 2019-02-27)
PROC: 10907ZC Drainage of Amniotic Fluid, Therapeutic from Products of Conception, Via Natural or Artificial Opening (ICD-10-PCS; principal; 2019-02-27)
PROC: 0UQGXZZ Repair Vagina, External Approach (ICD-10-PCS; principal; 2019-02-27)
PROC: 6A550ZT Pheresis of Cord Blood Stem Cells, Single (ICD-10-PCS; principal; 2019-02-27)
PROC: 3E033VJ Introduction of Other Hormone into Peripheral Vein, Percutaneous Approach (ICD-10-PCS; principal; 2019-02-27)
PROC: 00HU33Z Insertion of Infusion Device into Spinal Canal, Percutaneous Approach (ICD-10-PCS; 2019-02-27)
PROC: 3E0R3BZ Introduction of Anesthetic Agent into Spinal Canal, Percutaneous Approach (ICD-10-PCS; 2019-02-27)
DX: O36.8130 Decreased fetal movements, third trimester, not applicable or unspecified (principal); Z37.0 Single live birth; O71.4 Obstetric high vaginal laceration alone; Z3A.39 39 weeks gestation of pregnancy; O99.824 Streptococcus B carrier state complicating childbirth; O99.334 Smoking (tobacco) complicating childbirth; F17.210 Nicotine dependence, cigarettes, uncomplicated; Z88.0 Allergy status to penicillin
CPT/HCPCS: 36415; 51702; 59025; 59409; 85025; 86592; A9270-GY; J0290; J2590; J3010; J3490; J7030; J7120

== ENCOUNTER 2022-01-15 01:39 | Inpatient (IN) | payer OTHER ==
[2022-01-15] MEDS ORDERED: Sodium Chloride 0.9% 10 ML Syringe FLUSH PRN (02:11)
[2022-01-15] MEDS ORDERED: Nalbuphine 10 MG/1 ML Vial IVPUSH PRN (02:11)
[2022-01-15] MEDS ORDERED: Calcium Carbonate 500 MG Tab.Chew PO PRN (02:11)
[2022-01-15] MEDS ORDERED: Oxytocin/Lactated Ringers 10 UNIT/1,000 ML BAG IV SCH ×2 (02:15)
[2022-01-15] MEDS ORDERED: Lactated Ringers 1,000 ML IV SCH (02:15)
[2022-01-15] MEDS ORDERED: diphenhydrAMINE 50 MG/ML SDV IVPUSH PRN (02:46)
[2022-01-15] MEDS ORDERED: Bupivacaine/fentaNYL/NS 100 ML Bag EPIDUR PRN (02:46)
[2022-01-15] MEDS ORDERED: fentaNYL 100 MCG/2 ML SDV EPIDUR PRN (02:46)
[2022-01-15] MEDS ORDERED: ePHEDrine 50 MG/ML SDV IVPUSH PRN (02:46)
[2022-01-15] MEDS ORDERED: Oxytocin 10 Units/1 ML SDV IM ONE (03:10)
[2022-01-15] MEDS ORDERED: Oxytocin 10 Units/1 ML SDV ONE (03:12)
[2022-01-15] MEDS ORDERED: Docusate Sodium 100 MG Cap PO PRN (04:13)
[2022-01-15] MEDS ORDERED: Hydrocortisone Acetate 25 MG Supp RECTAL PRN (04:13)
[2022-01-15] MEDS ORDERED: Ibuprofen 600 MG Tab PO PRN (04:13)
[2022-01-15] MEDS ORDERED: Magnesium Hydroxide 400 MG/5 ML Susp 30 ML Cup PO PRN (04:13)
[2022-01-15] MEDS ORDERED: Acetaminophen 325 MG Tab PO PRN (04:13)
[2022-01-15] MEDS ORDERED: Witch Hazel Medicated Pads 40/Jar TOP PRN (04:13)
[2022-01-15] MEDS ORDERED: Benzocaine/Menthol 20%-0.5% Spray 78 GM Cannister TOP PRN (04:13)
[2022-01-15] MEDS ORDERED: Sodium Chloride 0.9% 10 ML Syringe FLUSH SCH (09:00)
[2022-01-15] MEDS: Prenatal Multivitamin with Calcium/Folic Acid/Iron Tab PO SCH (10:09)
[2022-01-16] MEDS: Prenatal Multivitamin with Calcium/Folic Acid/Iron Tab PO SCH (09:10)
== END 2022-01-16 14:45 | disposition home or self-care (01) | DRG 807 ==
LOC: JD.OBCHECK 01:39 → JD.OB 01:43 → JD.OBCHECK 02:12 → JD.OB 02:12 → OBSVTOIN 03:31 → JD.OB 03:32
PROVIDERS: ADMIT Obstetrics & Gynecology; ATTEND Obstetrics & Gynecology
PROC: 10E0XZZ Delivery of Products of Conception, External Approach (ICD-10-PCS; principal; 2022-01-15)
DX: O62.3 Precipitate labor (principal); Z37.0 Single live birth; O69.81X0 Labor and delivery complicated by cord around neck, without compression, not applicable or unspecified; O71.82 Other specified trauma to perineum and vulva; Z3A.38 38 weeks gestation of pregnancy; O99.334 Smoking (tobacco) complicating childbirth; F17.210 Nicotine dependence, cigarettes, uncomplicated; Z20.822 Contact with and (suspected) exposure to COVID-19
CPT/HCPCS: 36415; 59025; 59409; 85025; 86592; 86850; 86900; 86901; A9270-GY; J2590; J7120; U0002

== ENCOUNTER 2023-08-06 18:28 | Emergency (ER) | payer OTHER ==
[2023-08-06] MEDS ORDERED: Ondansetron 4 MG/2 ML SDV IVPUSH ONE (19:07)
[2023-08-06] MEDS ORDERED: Sodium Chloride 0.9% 10 ML Syringe FLUSH PRN (19:07)
[2023-08-06] MEDS ORDERED: Meclizine 25 MG Tab PO ONE (19:08)
[2023-08-06] MEDS ORDERED: Sodium Chloride 0.9% 1,000 ML IV SCH (19:15)
[2023-08-06 19:41] LABS: BASOPHILS ABSOLUTE AUTO 0.1 K/mm3 (0.0-0.2); BASOPHILS PERCENT AUTO 0.6 % (0.0-1.0); EOSINOPHILS PERCENT AUTO 0.2 % (0.0-6.0); HEMATOCRIT 43.5 % (37.0-47.0); HEMOGLOBIN 15.4 gm/dl (12.0-16.0); IMMATURE GRAN ABSOLUTE AUTO 0.03 K/mm3 (0.00-0.05); IMMATURE GRAN PERCENT AUTO 0.4 % (0.0-0.4); LYMPHOCYTES ABSOLUTE AUTO 2.7 K/mm3 (1.0-4.8); LYMPHOCYTES PERCENT AUTO 32.7 % (24.0-44.0); MEAN CORPUSCULAR HEMOGLOBIN 32.8 pg (28.0-32.0); MEAN CORPUSCULAR HGB CONC 35.4 g/dl (32.0-36.0); MEAN CORPUSCULAR VOLUME 92.8 fl (83.0-99.0); MEAN PLATELET VOLUME 8.8 fl (9.4-12.3); MONOCYTES ABSOLUTE AUTO 0.6 K/mm3 (0.0-0.8); MONOCYTES PERCENT AUTO 7.7 % (0.0-8.0); NEUTROPHILS ABSOLUTE AUTO 4.8 K/mm3 (1.8-7.7); NEUTROPHILS PERCENT AUTO 58.4 % (41.0-71.0); PLATELET COUNT,PLT 326 K/mm3 (150-400); RED BLOOD CELL COUNT 4.69 M/mm3 (4.10-5.30); WHITE BLOOD CELL COUNT,WBC 8.29 K/mm3 (3.9-11.3)
[2023-08-06 20:03] LABS: A/G RATIO 1.1 (1-2); ALBUMIN 4.1 g/dl (3.4-5.0); ANION GAP 16.7 (5-15); BILIRUBIN TOTAL 0.3 mg/dL (0.2-1.0); CALCIUM 8.6 mg/dL (8.5-10.1); CREATININE 0.8 mg/dL (0.55-1.02); EST CRCL DRUG DOSING (CG) 86.63 mL/min; ETHANOL BLOOD MEDICAL 0.17 gm% (0.00); POTASSIUM,K 3.7 mEq/L (3.5-5.1); PROTEIN TOTAL,TP 7.8 g/dl (6.4-8.2)
== END 2023-08-06 21:21 | disposition home or self-care (01) ==
LOC: JD.ED 18:28
DX: F10.120 Alcohol abuse with intoxication, uncomplicated (principal); Z86.16 Personal history of COVID-19; Z79.899 Other long term (current) drug therapy
CPT/HCPCS: 36415; 70450; 80053; 80307; 83735; 84484; 85025; 93005; 96361; 96374; 99284; A9270; J2405; J3490; J7030; 93010

== ENCOUNTER 2024-12-28 21:38 | Emergency (ER) | payer OTHER ==
[2024-12-28] MEDS: Doxycycline Monohydrate 100 MG Cap PO ONE (22:16)
== END 2024-12-28 22:32 | disposition home or self-care (01) ==
LOC: JD.ED 21:38
DX: S60.562A Insect bite (nonvenomous) of left hand, initial encounter (principal); Z79.899 Other long term (current) drug therapy; Z86.16 Personal history of COVID-19; W57.XXXA Bitten or stung by nonvenomous insect and other nonvenomous arthropods, initial encounter; Y93.89 Activity, other specified
CPT/HCPCS: 99283; A9270